=== PATIENT | female | born 1990 ===

== ENCOUNTER 2018-05-23 15:29 | Emergency (ER) | payer MEDICAID ==
[2018-05-23 15:29] VITALS: BMI 30.1
[2018-05-23 15:38] VITALS: BP 146/80; PULSE 70; RESP 16; TEMP 98.2; O2SAT 100
[2018-05-23] MEDS ORDERED: Naproxen 500 MG TAB PO STA (15:51)
--- NOTE | 2018-05-23 15:59 | ED PDOC ---
HPI: General Adult Time Seen by Provider: 05/23/18 15:38 Chief Complaint (Nursing): ENT Problem Chief Complaint (Provider): ENT Problem History Per: Patient History/Exam Limitations: no limitations Onset/Duration Of Symptoms: Days (x4) Current Symptoms Are (Timing): Still Present Additional Complaint(s): 27 year old female presents to the ED for evaluation of throat pain, chills, headache, and a slight cough for four days. Patient denies taking any medications prior to arrival. Otherwise, (-) fever, (-) abdominal pain, (-) nausea, (-) vomiting, (-) diarrhea, (-) chest pain, (-) shortness of breath, (- ) rash, (-) sick contact, (-) recent travel. LNMP: currently PMD: none provided Past Medical History Reviewed: Historical Data, Nursing Documentation, Vital Signs Vital Signs: Last Vital Signs Temp 98.2 F 05/23/18 15:35 Pulse 70 05/23/18 15:35 Resp 16 05/23/18 15:35 BP 146/80 05/23/18 15:35 Pulse Ox 100 05/23/18 16:02 - Medical History PMH: No Chronic Diseases - Surgical History Surgical History: No Surg Hx - Family History Family History: States: Unknown Family Hx - Social History Current smoker - smoking cessation education provided: No Alcohol: None Drugs: Denies - Home Medications Home Medications: Ambulatory Orders Medication Instructions Recorded Pnv No.95/Ferrous Fum/Folic AC 1 tab PO DAILY 07/15/16 [Prenavite] Ibuprofen [Motrin Tab] 600 mg PO Q6 PRN #30 tab 07/17/16 Amoxicillin 875 mg PO BID #14 tablet 05/23/18 Naproxen 500 mg PO BID PRN #20 tab 05/23/18 - Allergies Allergies/Adverse Reactions: Allergies Allergy/AdvReac Type Severity Reaction Status Date / Time No Known Allergies Allergy Verified 07/15/16 21:54 Review of Systems ROS Statement: Except As Marked, All Systems Reviewed And Found Negative Constitutional: Positive for: Chills. Negative for: Fever ENT: Positive for: Throat Pain Cardiovascular: Negative for: Chest Pain Respiratory: Positive for: Cough (slight). Negative for: Shortness of Breath Gastrointestinal: Negative for: Nausea, Vomiting, Abdominal Pain, Diarrhea Skin: Negative for: Rash Neurological: Positive for: Headache Physical Exam - Reviewed Nursing Documentation Reviewed: Yes Vital Signs Reviewed: Yes - Physical Exam Comments: GENERAL APPEARANCE: Patient is awake, alert, oriented x 3, in no acute distress. Resting comfortably. SKIN: Warm, dry; (-) cyanosis. EYES: (-) conjunctival pallor. ENMT: Mucous membranes moist. Airway patent: (-) stridor. Pharynx: (3+) tonsilar hypertrophy, (+) erythema, (+) bilateral exudates. Uvula midline. No tongue elevation. TMs: (-) erythema, (-) bulging. NECK: (-) tenderness, (-) stiffness, (-) lymphadenopathy. CHEST AND RESPIRATORY: (-) rhonchi, (-) rales, (-) wheezes, (-) pleural rub. Speaking full sentences; respirations even and non labored. HEART AND CARDIOVASCULAR: (-) irregularity; (-) murmur, (-) gallop. ABDOMEN AND GI: Soft; (-) tenderness. EXTREMITIES: (-) deformity; (-) edema. NEURO AND PSYCH: Mental status as above. Cranial nerves grossly intact; strength symmetric. - ECG O2 Sat by Pulse Oximetry: 100 (RA) Pulse Ox Interpretation: Normal Medical Decision Making Medical Decision Making: Time: 1544 Initial Impression: tonsillitis, throat pain Initial Plan: --Amoxicillin 500 mg PO --Decadron 10 mg IM --Naproxen 500 mg PO --Throat culture --Rapid strep 1625 Rapid Strep: Negative On re-evaluation, patient reports improvement of symptoms. On exam, patient remains AAOx3, in no acute distress. On exam, neck is supple, lungs CTA, cardiac RRR, abdomen is soft and non-tender, neuro exam shows no focal findings. VSS, stable for discharge. Diagnostic results d/w the patient in great detail. Dx of tonsillitis, headache d/w the patient. Based on history, exam and diagnostic results plan will be for discharge and outpatient follow up. Advised to follow up with primary care physician in 1-2 days without fail. Advised to take medication as prescribed. Return to the emergency room at any time for any new or worsening symptoms. Patient states she fully agrees with and understands discharge instructions. States that she agrees with the plan and disposition. Verbalized and repeated discharge instructions and plan. I have given the patient opportunity to ask any additional questions. Scribe Attestation: Documented by Sophia Vazquez, acting as a scribe for Ruth Trotter PA-C. Provider Scribe Attestation: All medical record entries made by the Scribe were at my direction and personally dictated by me. I have reviewed the chart and agree that the record accurately reflects my personal performance of the history, physical exam, medical decision making, and the department course for this patient. I have also personally directed, reviewed, and agree with the discharge instructions and disposition. Disposition - Clinical Impression Clinical Impression: Tonsillitis, Headache, Throat pain in adult - Patient ED Disposition Is Patient to be Admitted: No Counseled Patient/Family Regarding: Studies Performed, Diagnosis, Need For Followup, Rx Given - Disposition Referrals: [facility] [Outside] Disposition: Routine/Home Disposition Time: 16:28 Condition: STABLE Additional Instructions: Follow up with clinic for further evaluation. Return to ED with any new or worsening symptoms. Take medication as prescribed. Prescriptions: Amoxicillin 875 mg PO BID #14 tablet Naproxen 500 mg PO BID PRN #20 tab PRN Reason: pain, headache Instructions: Sore Throat in Adults, Headache, Adult Forms: Fiz (Lithuanian) Print Language: SAO TOMEAN - POA Present On Arrival: None Results - Lab Results Lab Results: 05/23/18 15:50 Grp A Beta Strep Ag Negative
[2018-05-23] MEDS ORDERED: Naproxen 500 MG TAB PO ONE (16:10)
== END 2018-05-23 16:35 | disposition home or self-care (01) ==
LOC: H.ER 15:29
DX: J03.90 Acute tonsillitis, unspecified (principal); R51 Headache
CPT/HCPCS: 81025; 87070; 87430; 96372; 99282; J1100